=== PATIENT | male | born 1960 | race Caucasian/White ===

== ENCOUNTER 2020-05-16 16:08 | Outpatient (REF) | payer MEDICARE, SELFPAY ==
--- NOTE | 2020-05-16 16:45 | MR_ITS ---
MR LUMBAR SPINE WITHOUT AND WITH CONTRAST CLINICAL INFORMATION: Chronic lumbar pain. Rule out disc stenosis. Metastatic disease from prostate cancer. COMPARISON: None available. TECHNIQUE: MRI of the lumbar spine was obtained using routine sequences with and without contrast. Intravenous contrast: Magnevist 8.5 mL FINDINGS: Please note that there is transitional anatomy. For the purposes of this report S1 is partially lumbarized and shares a nearly completely developed intervertebral disc with S2. There are 5 nonrib-bearing lumbar-type vertebral bodies. Vertebral body heights are maintained. There is partial disc desiccation at all lumbar levels with the exception of L2 on L3. There is no bone marrow edema. There are no acute fractures. The conus terminates at the L1 level. There is no pathologic intrathecal enhancement. There is no pathologic enhancement along the cauda equina nerve roots. There are bilateral renal cysts. L1-L2: Disc contour is normal. No central canal stenosis and no foraminal stenosis. L2-L3: Small annular disc bulge and moderate bilateral facet arthropathy. No central canal stenosis and no foraminal stenosis. L3-L4: Small annular disc bulge and moderate bilateral facet arthropathy. No central canal stenosis and no foraminal stenosis. L4-L5: Small annular disc bulge and moderate bilateral facet arthropathy. No central canal stenosis and no foraminal stenosis. L5-S1: Diffuse annular disc bulge and moderate bilateral facet arthropathy. No central canal stenosis. Mild foraminal encroachment bilaterally. S1-S2: The disc contour is normal. There is no central canal stenosis and there is no foraminal stenosis. MR/MR lumbar spine wo/w con IMPRESSION: - Mild to moderate spondylitic changes throughout the lumbar spine. No severe central canal stenosis and no severe foraminal stenosis. Transitional anatomy with lumbarization of S1 which shares a nearly completely developed intervertebral disc with S2. - No evidence of metastatic disease. No pathologic enhancement.
[2020-05-16 17:06] LABS: Blood Urea Nitrogen 11 mg/dL (9-16); Estimated Glomerular Filt Rate > 60
[2020-05-16 17:28] LABS: T4 Thyroxine 9.2 ug/dL (4.5-12.0); Thyroid Stimulating Hormone 1.38 mIU/mL (0.32-4.0)
[2020-05-16 17:39] LABS: Erythrocyte Sedimentation Rate 9 MM/HR (0-15)
== END 2020-05-16 16:09 | disposition home or self-care (01) ==
LOC: HO.MRI 16:08
PROVIDERS: PCP Family Medicine; Visit Provider Psychiatry & Neurology Neurology
DX: M54.5 Low back pain (principal)
CPT/HCPCS: 36415; 72158; 82550; 82565; 84436; 84443; 84520; 85652